=== PATIENT | male | born 1955 | race Caucasian/White ===

== ENCOUNTER 2018-10-03 20:56 | Emergency (ER) | payer MEDICARE, OTHER ==
--- NOTE | 2018-10-03 21:48 | EDM.PDOC ---
ED HPI GENERAL MEDICAL PROBLEM - General Chief Complaint: General Stated Complaint: finger pain Time Seen by Provider: 10/03/18 21:37 Source of Information: Reports: Patient History Limitations: Reports: No Limitations - History of Present Illness INITIAL COMMENTS - FREE TEXT/NARRATIVE: Patient comes in with complaint of recent onset swelling and pain near base of fingernail right middle finger. He tried to drain it on his own where an area appeared to be abscessed but unable. Wonders if it is related to dog bite for weeks ago where he had wounds to the middle portion of the same finger as well as base of finger. These areas have since healed well and do not have any increased redness/swelling or drainage. No fevers/chills. No other pain complaint with affected hand/fingers/arm. No other acute complaints. [place] [facility]. Smoker. - Related Data Allergies Allergy/AdvReac Type Severity Reaction Status Date / Time bee pollen Allergy Swelling Verified 10/03/18 21:04 bee venom protein (honey bee) Allergy Swelling Verified 10/03/18 21:04 dicyclomine [From Bentyl] Allergy Cannot Verified 10/03/18 21:04 Remember grain dust Allergy Rash Uncoded 10/03/18 21:04 plant fiber Allergy Other Uncoded 10/03/18 21:04 pollen Allergy Rash Uncoded 10/03/18 21:04 Home Meds: Home Meds ARIPiprazole [Abilify] 5 mg PO DAILY 10/03/18 [History] Amoxicillin/Clavulanate K [Augmentin 875-125 MG] 1 tab PO Q12HR #8 tablet [Rx] Aspirin [Halfprin] 81 mg PO DAILY 10/03/18 [History] Calcium Carbonate [Tums Extra Strength] 750 mg PO ASDIRECTED PRN 10/03/18 [ History] Cholecalciferol (Vitamin D3) [Vitamin D3] 8,000 unit PO DAILY 10/03/18 [History] D-Methorphan/PE/Acetaminophen [Cold Head Congestion Caplet] 1 each PO ASDIRECTED PRN 10/03/18 [History] Docusate Sodium [Colace] 100 mg PO DAILY PRN 10/03/18 [History] EPINEPHrine [Epipen] 0.3 mg IM ASDIRECTED PRN 10/03/18 [History] Empagliflozin [Jardiance] 10 mg PO DAILY 10/03/18 [History] Famotidine 20 mg PO DAILY 10/03/18 [History] Fenofibrate,Micronized [Fenofibrate] 134 mg PO DAILY 10/03/18 [History] Fluticasone Propionate [Flonase] 2 spray INH DAILY PRN 10/03/18 [History] Ibuprofen 400 mg PO TID PRN 10/03/18 [History] Insulin Detemir [Levemir] 30 unit SQ QAM 10/03/18 [History] Insulin Detemir [Levemir] 60 unit SQ QPM 10/03/18 [History] Lisinopril [Prinivil] 2.5 mg PO DAILY 10/03/18 [History] Mineral Oil/Petrolatum Hy-Phl [Hydrophor Oint] 1 applic TOP ASDIRECTED PRN 10/03 [History] Multivit-Minerals/Folic Acid [Cvs Daily Multiple Tablet] 0.4 mg PO DAILY [History] Omeprazole 20 mg PO DAILY 10/03/18 [History] Simvastatin 20 mg PO DAILY 10/03/18 [History] Tolnaftate [Antifungal] 113.3 gm TP ASDIRECTED PRN 10/03/18 [History] glipiZIDE [Glucotrol] 10 mg PO DAILY 10/03/18 [History] metFORMIN [Glucophage XR] 500 mg PO BIDMEALS 10/03/18 [History] Past Medical History HEENT History: Reports: Allergic Rhinitis, Hard of Hearing, Other (See Below) ( tinnitus) Cardiovascular History: Reports: High Cholesterol, Hypertension, PVD Respiratory History: Reports: Sleep Apnea Gastrointestinal History: Reports: GERD, Irritable Bowel Syndrome, Other (See Below) (dysphagia, colon polyps) Musculoskeletal History: Reports: Osteoarthritis, Other (See Below) (ventral hernia) Psychiatric History: Reports: Anxiety, Bipolar, Depression, PTSD, Other (See Below) (mood disorder, insomnia, somatiform disorder) Endocrine/Metabolic History: Reports: Diabetes, Type II (with neuropathy), Obesity/BMI 30+ Hematologic History: Reports: Other (See Below) (vitamin D deficiency) Dermatologic History: Reports: Psoriasis Social & Family History - Family History Family Medical History: Noncontributory - Tobacco Use Smoking Status *Q: Current Every Day Smoker Years of Tobacco use: 44 Packs/Tins Daily: 2 Smoking Cessation Information Provided To Patient: Patient Refused - Caffeine Use Caffeine Use: Reports: Coffee, Soda - Alcohol Use Days Per Week of Alcohol Use: 4 Number of Drinks Per Day: 1 Total Drinks Per Week: 4 - Recreational Drug Use Recreational Drug Use: No ED ROS GENERAL - Review of Systems Review Of Systems: ROS reveals no pertinent complaints other than HPI. ED EXAM, GENERAL - Physical Exam Exam: See Below Exam Limited By: No Limitations General Appearance: Alert, WD/WN, No Apparent Distress Eye Exam: Bilateral Eye: EOMI, PERRL Head: Atraumatic, Normocephalic Neck: Supple Respiratory/Chest: No Respiratory Distress Extremities: Other (Examination of right hand shows mild erythema around edge of fingernail middle finger right hand. Able to identify formation of abscess underneath skin but no drainage noted. Finger function is intact. Healed areas of skin noted middle and base of same finger from patient's reported dog bite. These areas appear to be healing well, no redness/pain/drainage. Hand and remaining fingers nontender and full ROM. ) Psychiatric: Normal Affect, Normal Mood, Other (very talkative) Skin Exam: Warm, Dry ED GENERAL MEDICAL PROCEDURES - Additional/Other Procedure(s) Other (Free Text) Procedure(s): area of redness/swelling distal right middle finger cleansed with alcohol. Abscess drained using number 11 blade. Sample sent for culture and smear. Course - Vital Signs Last Recorded V/S: Last Vital Signs Temp 36.8 C 10/03/18 21:17 Pulse 95 10/03/18 21:17 Resp 16 10/03/18 21:17 BP 119/74 10/03/18 21:17 Pulse Ox 98 10/03/18 21:17 - Orders/Labs/Meds Orders: Active Orders 24 hr Category Date Time Status CULTURE WOUND + SMEAR [RM] Stat Lab 10/03/18 21:37 Ordered Meds: Medications Discontinued Medications Generic Name Dose Route Start Last Admin Trade Name Deni PRN Reason Stop Dose Admin Tramadol HCl 50 mg 10/03/18 21:57 Ultram PO 10/03/18 21:58 ONETIME ONE - Re-Assessments/Exams Free Text/Narrative Re-Assessment/Exam: I&D performed. Culture and sensitivity/smear ordered from abscess material. Patient had brief vaso-vagal episode during procedure and was placed from sitting position to laying down on his back in ER bed. He quickly recovered. Stated that his finger was much more comfortable after it abscess drained. Single Tramadol ordered for pain. No pain medication sent home with patient as 1) he declined pain medication and 2) he was very specific that he was going to the bar to be with his sons and would be drinking alcohol. Wound care discussed at length. Precautions reviewed. To follow up if finger shows signs of worsening, or if no improvement noted by Saturday. 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 Pending culture results, may need to have antibiotic switched if this infection is also MRSA + To go bottle of 6 doses Augmentin given to patient to take home. Additional Rx for 8 tabs to complete one week course of treatment also given to patient. Departure - Departure Time of Disposition: 21:57 Disposition: Home, Self-Care 01 Condition: Good Clinical Impression: Encounter for drainage of abscess Paronychia of finger Qualifiers: Laterality: right Qualified Code(s): L03.011 - Cellulitis of right finger - Discharge Information *PRESCRIPTION DRUG MONITORING PROGRAM REVIEWED*: Not Applicable *COPY OF PRESCRIPTION DRUG MONITORING REPORT IN PATIENT CATHY: Not Applicable Prescriptions: Amoxicillin/Clavulanate K [Augmentin 875-125 MG] 1 tab PO Q12HR #8 tablet Instructions: Paronychia, [id number] Referrals: Rachel Graham PA [Primary Care Provider] - Forms: ED Department Discharge Additional Instructions: Soak affected finger in saline for 15 minutes twice a day for the next 5 days. Take you antibiotic every 12 hours for one week Get rechecked if finger is not improving within two days. Check on last tetanus shot year, get updated shot if greater than 10 yrs since last one. If culture is + for MRSA will need to switch antibiotics. - My Orders Last 24 Hours: My Active Orders 10/03/18 21:37 CULTURE WOUND + SMEAR [RM] Stat - Assessment/Plan Last 24 Hours: My Active Orders 10/03/18 21:37 CULTURE WOUND + SMEAR [RM] Stat
[2018-10-03] MEDS ORDERED: traMADol 50 MG Tab PO ONE (21:57)
== END 2018-10-03 22:40 | disposition home or self-care (01) ==
LOC: LL.ED 20:56
DX: L03.011 Cellulitis of right finger (principal); F17.210 Nicotine dependence, cigarettes, uncomplicated; Z79.899 Other long term (current) drug therapy; E78.00 Pure hypercholesterolemia, unspecified; I10 Essential (primary) hypertension; F41.9 Anxiety disorder, unspecified; E11.40 Type 2 diabetes mellitus with diabetic neuropathy, unspecified; Z79.4 Long term (current) use of insulin
CPT/HCPCS: 10060; 87070; 87205; 99283-25; A9270-GY

== ENCOUNTER 2019-08-03 16:07 | Emergency (ER) | payer MEDICARE, OTHER ==
[2019-08-03 16:44] LABS: CHLORIDE,CL 101 mmol/L (98-107); SODIUM,NA 136 mmol/L (136-145)
--- NOTE | 2019-08-03 17:14 | EDM.PDOC ---
ED HPI GENERAL MEDICAL PROBLEM - General Chief Complaint: Fever Stated Complaint: fever, difficulty urinating, burning urine Time Seen by Provider: 08/03/19 16:35 Source of Information: Reports: Patient History Limitations: Reports: No Limitations - History of Present Illness INITIAL COMMENTS - FREE TEXT/NARRATIVE: Patient comes to ER with complaint of not feeling well for last 5 days. Reports feeling achy/chilled around 4-5 days ago. That improved. He was noted to have temp of 104 today at [place] home. Around same time he reports having more hesitancy with urination. Today has some burning with urination/feels pressure. No hematuria. Was trying to drink cranberry juice the last few days as he worried he might be getting some sort of UTI. Does not report having any significant history of UTIs or prostatitis. Denies HEENT changes/[place]/runny nose/sore throat No RESP changes such as cough/wheeze/SOB No CV changes/chest pain/palpitation No GI complaints such as appetite changes/nausea/emesis/bowel changes/abdominal pain/flank pain No acute neuro changes/focal changes groin area Pain Score (Numeric/FACES): 4 - Related Data Allergies Allergy/AdvReac Type Severity Reaction Status Date / Time bee pollen Allergy Swelling Verified 08/03/19 16:30 bee venom protein (honey bee) Allergy Swelling Verified 08/03/19 16:30 grain dust Allergy Rash Uncoded 08/03/19 16:30 plant fiber Allergy Other Uncoded 08/03/19 16:30 pollen Allergy Rash Uncoded 08/03/19 16:30 Home Meds: Home Meds ARIPiprazole [Abilify] 5 mg PO DAILY 10/03/18 [History] Amoxicillin/Clavulanate K [Augmentin 875-125 MG] 1 tab PO Q12HR #8 tablet [Rx] Aspirin [Halfprin] 81 mg PO DAILY 10/03/18 [History] Calcium Carbonate [Tums Extra Strength] 750 mg PO ASDIRECTED PRN 10/03/18 [ History] Cholecalciferol (Vitamin D3) [Vitamin D3] 8,000 unit PO DAILY 10/03/18 [History] D-Methorphan/PE/Acetaminophen [Cold Head Congestion Caplet] 1 each PO ASDIRECTED PRN 10/03/18 [History] Docusate Sodium [Colace] 100 mg PO DAILY PRN 10/03/18 [History] EPINEPHrine [Epipen] 0.3 mg IM ASDIRECTED PRN 10/03/18 [History] Empagliflozin [Jardiance] 10 mg PO DAILY 10/03/18 [History] Famotidine 20 mg PO DAILY 10/03/18 [History] Fenofibrate,Micronized [Fenofibrate] 134 mg PO DAILY 10/03/18 [History] Fluticasone Propionate [Flonase] 2 spray INH DAILY PRN 10/03/18 [History] Ibuprofen 400 mg PO TID PRN 10/03/18 [History] Insulin Detemir [Levemir] 30 unit SQ QAM 10/03/18 [History] Insulin Detemir [Levemir] 60 unit SQ QPM 10/03/18 [History] Mineral Oil/Petrolatum Hy-Phl [Hydrophor Oint] 1 applic TOP ASDIRECTED PRN 10/03 [History] Multivit-Minerals/Folic Acid [Cvs Daily Multiple Tablet] 0.4 mg PO DAILY [History] Omeprazole 20 mg PO DAILY 10/03/18 [History] Simvastatin 20 mg PO DAILY 10/03/18 [History] Tolnaftate [Antifungal] 113.3 gm TP ASDIRECTED PRN 10/03/18 [History] glipiZIDE [Glucotrol] 10 mg PO DAILY 10/03/18 [History] lisinopriL [Prinivil] 2.5 mg PO DAILY 10/03/18 [History] metFORMIN [Glucophage XR] 500 mg PO BIDMEALS 10/03/18 [History] Sulfamethoxazole/Trimethoprim [Septra DS] 1 each PO Q12H #36 tab 08/03/19 [Rx] Past Medical History HEENT History: Reports: Allergic Rhinitis, Hard of Hearing, Other (See Below) Cardiovascular History: Reports: High Cholesterol, Hypertension, PVD Respiratory History: Reports: Sleep Apnea Gastrointestinal History: Reports: GERD, Irritable Bowel Syndrome, Other (See Below) Musculoskeletal History: Reports: Osteoarthritis, Other (See Below) Psychiatric History: Reports: Anxiety, Bipolar, Depression, PTSD, Other (See Below) Endocrine/Metabolic History: Reports: Diabetes, Type II, Obesity/BMI 30+ Hematologic History: Reports: Other (See Below) Dermatologic History: Reports: Psoriasis Social & Family History - Family History Family Medical History: Noncontributory - Caffeine Use Caffeine Use: Reports: Coffee, Soda ED ROS GENERAL - Review of Systems Review Of Systems: Comprehensive ROS is negative, except as noted in HPI. ED EXAM, GENERAL - Physical Exam Exam: See Below Exam Limited By: No Limitations General Appearance: Alert, WD/WN, No Apparent Distress Eye Exam: Bilateral Eye: EOMI, PERRL Ears: Normal External Exam, Hearing Grossly Normal Nose: No: Nasal Deformity, Nasal Swelling, Nasal Drainage Throat/Mouth: Normal Lips, Normal Voice, No Airway Compromise Head: Atraumatic, Normocephalic Neck: Supple, Full Range of Motion Respiratory/Chest: No Respiratory Distress, Lungs Clear, Normal Breath Sounds, No Accessory Muscle Use, Chest Non-Tender Cardiovascular: Normal Peripheral Pulses, No Murmur, No Rub, Tachycardia ( elevated temp) GI/Abdominal: Normal Bowel Sounds, Soft, Non-Tender. No: Guarding, Rigid, Rebound, Tender (Male) Exam: Deferred Rectal (Males) Exam: Deferred Back Exam: No: CVA Tenderness (L), CVA Tenderness (R), Muscle Spasm, Paraspinal Tenderness, Vertebral Tenderness Extremities: Normal Range of Motion, Normal Capillary Refill Neurological: Alert, Oriented, Normal Gait Psychiatric: Normal Affect, Normal Mood Skin Exam: Warm, Dry, Intact, Normal Color Course - Vital Signs Last Recorded V/S: Last Vital Signs Temp 38.5 C H 08/03/19 16:23 Pulse 123 H 08/03/19 16:23 Resp 22 H 08/03/19 16:23 BP 140/58 L 08/03/19 16:23 Pulse Ox 93 L 08/03/19 16:23 - Orders/Labs/Meds Orders: Active Orders 24 hr Category Date Time Status Communication Order [RC] ROUTINE Care 08/03/19 16:42 Ordered Chest 2V [CR] Stat Exams 08/03/19 16:36 Ordered CULTURE URINE [RM] Stat Lab 08/03/19 16:00 Received Labs: Laboratory Tests 08/03/19 08/03/19 08/03/19 Range/Units 16:00 16:24 16:24 WBC 12.3 H (4.0-10.2) K/uL RBC 4.11 L (4.33-5.41) M/uL Hgb 12.8 L (13.1-16.8) g/dL Hct 35.9 L (39.0-49.0) % MCV 87.3 (84.0-98.0) fL MCH 31.1 (28.2-33.3) pg MCHC 35.7 (31.7-36.0) g/dL RDW 13.2 (11.2-14.1) % Plt Count 186 (150-350) K/uL Neut % (Auto) 83.4 H (45.0-80.0) % Lymph % (Auto) 7.4 L (10.0-50.0) % [place] % (Auto) 8.3 (2.0-14.0) % Eos % (Auto) 0.7 (0.0-5.0) % Baso % (Auto) 0.2 (0.0-2.0) % Neut # (Auto) 10.23 H (1.40-7.00) K/uL Lymph # (Auto) 0.91 (0.50-3.50) K/uL [place] # (Auto) 1.02 H (0.00-1.00) K/uL Eos # (Auto) 0.09 (0.00-0.50) K/uL Baso # (Auto) 0.03 (0.00-0.20) K/uL Sodium 136 (136-145) mmol/L Potassium 4.6 (3.5-5.1) mmol/L Chloride 101 (98-107) mmol/L Carbon Dioxide 23.9 (21.0-32.0) mmol/L BUN 24 H (7-18) mg/dL Creatinine 1.19 H (0.51-1.17) mg/dL Est Cr Clr Drug Dosing 66.64 mL/min Estimated GFR (MDRD) > 60 mL/min Glucose 352 H (74-106) mg/dL Lactic Acid (0.4-2.0) mmol/L Calcium 9.1 (8.5-10.1) mg/dL Specimen Type . Urine Color Yellow Urine Appearance Slightly cloudy Urine pH 6.0 (5.0-9.0) Ur Specific [place] 1.010 (1.005-1.030) Urine Protein 30 H (NEGATIVE) mg/dL Urine Glucose (UA) 500 H (NEGATIVE) mg/dL Urine Ketones Negative (NEGATIVE) mg/dL Urine Occult Blood Small H (NEGATIVE) Urine Nitrite Positive H (NEGATIVE) Urine Bilirubin Negative (NEGATIVE) Urine Urobilinogen 0.2 (0.2-1.0) E.U./dL Ur Leukocyte Esterase Small H (NEGATIVE) Urine RBC 0-5 /HPF Urine WBC 5-10 H /HPF Ur Epithelial Cells Few /LPF Urine Bacteria Moderate H (NONE TO FEW) /HPF Urinalysis Comment 08/03/19 Range/Units 16:24 WBC (4.0-10.2) K/uL RBC (4.33-5.41) M/uL Hgb (13.1-16.8) g/dL Hct (39.0-49.0) % MCV (84.0-98.0) fL MCH (28.2-33.3) pg MCHC (31.7-36.0) g/dL RDW (11.2-14.1) % Plt Count (150-350) K/uL Neut % (Auto) (45.0-80.0) % Lymph % (Auto) (10.0-50.0) % [place] % (Auto) (2.0-14.0) % Eos % (Auto) (0.0-5.0) % Baso % (Auto) (0.0-2.0) % Neut # (Auto) (1.40-7.00) K/uL Lymph # (Auto) (0.50-3.50) K/uL [place] # (Auto) (0.00-1.00) K/uL Eos # (Auto) (0.00-0.50) K/uL Baso # (Auto) (0.00-0.20) K/uL Sodium (136-145) mmol/L Potassium (3.5-5.1) mmol/L Chloride (98-107) mmol/L Carbon Dioxide (21.0-32.0) mmol/L BUN (7-18) mg/dL Creatinine (0.51-1.17) mg/dL Est Cr Clr Drug Dosing mL/min Estimated GFR (MDRD) mL/min Glucose (74-106) mg/dL Lactic Acid 1.0 (0.4-2.0) mmol/L Calcium (8.5-10.1) mg/dL Specimen Type Urine Color Urine Appearance Urine pH (5.0-9.0) Ur Specific [place] (1.005-1.030) Urine Protein (NEGATIVE) mg/dL Urine Glucose (UA) (NEGATIVE) mg/dL Urine Ketones (NEGATIVE) mg/dL Urine Occult Blood (NEGATIVE) Urine Nitrite (NEGATIVE) Urine Bilirubin (NEGATIVE) Urine Urobilinogen (0.2-1.0) E.U./dL Ur Leukocyte Esterase (NEGATIVE) Urine RBC /HPF Urine WBC /HPF Ur Epithelial Cells /LPF Urine Bacteria (NONE TO FEW) /HPF Urinalysis Comment - Re-Assessments/Exams Free Text/Narrative Re-Assessment/Exam: Elevated temp and accompanying elevated heart rate noted. Good capillary refill/ well hydrated. UA showed 5-10 WBC with some LE/Nitrite noted. UC requested. Mild increase in WBC. Normal lactic acid. Chest xray appeared unremarkable. Plan at this time is to place patient on Septra. This will provide coverage for UTI/prostatitis. May need to change coverage once UC results available. Recheck of UA recommended in 1-2 weeks. To get rechecked if no improvement of symptoms noted within 2-3 days or if symptoms suddenly worsen. Departure - Departure Time of Disposition: 17:09 Disposition: Home, Self-Care 01 Condition: Good Clinical Impression: UTI (urinary tract infection) Qualifiers: Urinary tract infection type: site unspecified Hematuria presence: without hematuria Qualified Code(s): N39.0 - Urinary tract infection, site not specified - Discharge Information *PRESCRIPTION DRUG MONITORING PROGRAM REVIEWED*: Not Applicable *COPY OF PRESCRIPTION DRUG MONITORING REPORT IN PATIENT CATHY: Not Applicable Prescriptions: Sulfamethoxazole/Trimethoprim [Septra DS] 1 each PO Q12H #36 tab Instructions: Urinary Tract Infection, Adult, [id number] Referrals: PCP,Unknown [Primary Care Provider] - Forms: ED Department Discharge Additional Instructions: Take your antibiotic once every 12 hours for three weeks. Arrange to have your urine rechecked in 1-2 weeks to make certain that things appear to be improving. Get to the clinic for recheck/or return to ER if you have sudden worsening symptoms. Sepsis Event Note - Evaluation Sepsis Screening Result: Possible Sepsis Risk - Focused Exam Vital Signs: Vital Signs Temp Pulse Resp BP Pulse Ox 08/03/19 16:23 38.5 C H 123 H 22 H 140/58 L 93 L Date Exam was Performed: 08/03/19 Time Exam was Performed: 17:16 - My Orders Last 24 Hours: My Active Orders 08/03/19 16:00 CULTURE URINE [RM] Stat 08/03/19 16:36 Chest 2V [CR] Stat 08/03/19 16:42 Communication Order [RC] ROUTINE - Assessment/Plan Last 24 Hours: My Active Orders 08/03/19 16:00 CULTURE URINE [RM] Stat 08/03/19 16:36 Chest 2V [CR] Stat 08/03/19 16:42 Communication Order [RC] ROUTINE
== END 2019-08-03 17:30 | disposition home or self-care (01) ==
LOC: LL.ED 16:07
DX: N39.0 Urinary tract infection, site not specified (principal); E11.9 Type 2 diabetes mellitus without complications; E66.9 Obesity, unspecified; I10 Essential (primary) hypertension; K21.9 Gastro-esophageal reflux disease without esophagitis; Z91.030 Bee allergy status; Z79.4 Long term (current) use of insulin; Z79.82 Long term (current) use of aspirin; Z79.899 Other long term (current) drug therapy
CPT/HCPCS: 36415; 51701; 51798; 71046; 80048; 81001; 83605; 85025; 87086; 87088; 87186; 99283; 99283-25

== ENCOUNTER 2021-02-20 01:26 | Emergency (ER) | payer MEDICARE, OTHER ==
[2021-02-20 02:09] LABS: ANION GAP 11.7 meq/L (7-15)
[2021-02-20] MEDS ORDERED: Sulfamethoxazole/Trimethoprim 800-160 MG Tab PO ONE (02:30)
[2021-02-20] MEDS ORDERED: Enoxaparin 60 MG/0.6 ML Syringe SUBCUT ONE (02:32)
--- NOTE | 2021-02-20 02:43 | EDM.PDOC ---
ED HPI GENERAL MEDICAL PROBLEM - General Chief Complaint: General Stated Complaint: pain & swelling R leg Time Seen by Provider: 02/20/21 02:13 Source of Information: Reports: Patient, Assisted Records - History of Present Illness INITIAL COMMENTS - FREE TEXT/NARRATIVE: Ino is a 65 y/o male who lives at the [facility] and he is here in the the ER tonight for increase right lower leg swelling. He showed the nurse his leg tonight and it is quite edematous and oozing serous colored fluid in an area on the inner calf region. No fever, but he does report that yesterday felt chilled and overall not good. He is a diabetic and and has a history of frequent cellulitis and venous dermatitis. He has been getting Unna Boot applied and he finished a course of Levaquin recently. Treatments VASCULAR MANAGER: Reports: Other (see below) Other Treatments VASCULAR MANAGER: gabapentin at 0000. - Related Data Allergies Allergy/AdvReac Type Severity Reaction Status Date / Time bee venom protein (honey bee) Allergy Swelling Verified 02/20/21 02:00 pollen extracts Allergy Sneezing Verified 02/20/21 02:00 fiber Allergy Itching Uncoded 02/20/21 02:00 grain dust Allergy Sneezing Uncoded 02/20/21 02:00 Home Meds: Home Meds ARIPiprazole [Abilify] 5 mg PO DAILY 02/20/21 [History] Acetaminophen [Tylenol] 650 mg PO QID 02/20/21 [History] Aspirin [Aspirin EC] 81 mg PO DAILY 02/20/21 [History] Calcium Carbonate [Tums] 750 mg PO ASDIRECTED PRN 02/20/21 [History] Cholecalciferol (Vitamin D3) [Vitamin D3] 2,000 unit PO DAILY 02/20/21 [History] EPINEPHrine [Epipen] 0.3 mg IM ASDIRECTED PRN 02/20/21 [History] Empagliflozin [Jardiance] 10 mg PO DAILY 02/20/21 [History] Famotidine 20 mg PO DAILY 02/20/21 [History] Fenofibrate,Micronized [Fenofibrate] 134 mg PO DAILY 02/20/21 [History] Fluticasone Propionate [Flovent] 1 puff IH BID 02/20/21 [History] Gabapentin [Neurontin] 600 mg PO Q4HR 02/20/21 [History] Ibuprofen 400 mg PO TID PRN 02/20/21 [History] Insulin Detemir [Levemir] 30 unit SQ DAILY@08 02/20/21 [History] Insulin Detemir [Levemir] 60 unit SQ BEDTIME 02/20/21 [History] Methyl Salicylate/Menthol [Thera-Gesic Analgesic] 85 gm TP QID PRN 02/20/21 [History] Multivit with Iron,Minerals [Complete Senior] 1 each PO DAILY 02/20/21 [History] Omeprazole 20 mg PO DAILY 02/20/21 [History] Petrolatum,White [Hydrophor] 228 gm TP ASDIRECTED PRN 02/20/21 [History] Simvastatin [Zocor] 20 mg PO BEDTIME 02/20/21 [History] Sulfamethoxazole/Trimethoprim [Bactrim Ds Tablet] 1 each PO BID #20 tablet 02/20/21 [Rx] Tolnaftate [Antifungal] 113.3 gm TP BID PRN 02/20/21 [History] glipiZIDE [Glucotrol XL] 10 mg PO DAILY 02/20/21 [History] lisinopriL [Lisinopril] 10 mg PO DAILY@08 02/20/21 [History] lisinopriL [Lisinopril] 20 mg PO DAILY@20 02/20/21 [History] metFORMIN HCl [Metformin HCl ER] 1,000 mg PO BID 02/20/21 [History] polyethylene glycoL 3350 [Miralax] 17 gm PO DAILY PRN 02/20/21 [History] Social & Family History - Tobacco Use Tobacco Use Status *Q: Current Every Day Tobacco User Years of Tobacco use: 36 Packs/Tins Daily: 1.5 Second Hand Smoke Exposure: No - Caffeine Use Caffeine Use: Reports: Coffee, Soda - Recreational Drug Use Recreational Drug Use: No ED ROS GENERAL - Review of Systems Review Of Systems: See Below Constitutional: Reports: Chills HEENT: Reports: No Symptoms Respiratory: Reports: No Symptoms Cardiovascular: Reports: No Symptoms Endocrine: Reports: No Symptoms GI/Abdominal: Reports: No Symptoms : Reports: No Symptoms Musculoskeletal: Reports: No Symptoms Skin: Reports: Erythema (right lower leg, edema) Neurological: Reports: No Symptoms Psychiatric: Reports: No Symptoms Hematologic/Lymphatic: Reports: No Symptoms Immunologic: Reports: No Symptoms ED EXAM, GENERAL - Physical Exam Exam: See Below General Appearance: Alert, WD/WN, No Apparent Distress, Other (Elderly male, pleasant.) Ears: Hearing Grossly Normal Nose: Normal Inspection Throat/Mouth: Normal Voice Head: Atraumatic, Normocephalic Neck: Supple Respiratory/Chest: No Respiratory Distress, Lungs Clear Cardiovascular: Regular Rate, Rhythm GI/Abdominal: Normal Bowel Sounds, Soft (Male) Exam: Deferred Rectal (Males) Exam: Deferred Extremities: Other (Both legs have venous dermatitis appearance, right leg is more swollen, with 2-3+ pitting edema noted, small area on serous drainage ozzing from tissue on the right inner calf region, no other open areas or sores noted) Neurological: Alert, Oriented, CN II-XII Intact Psychiatric: Normal Affect Skin Exam: Warm, Dry, Intact, Normal Color Course - Vital Signs Text/Narrative:: The patient was seen by the DIESEL ENGINE INSPECTOR. Labs ordered. Labs reviewed. Note normal WBC, neutrophils mild elevated at 81.5%; CMP BUN=26, Grain Broker=1.73 (Previously BUN=27, Grain Broker=1.18 on 05-23-2020), PT/INR stable. Suspect recurrent Cellulitis, but will order Venous Doppler Study for later today to exclude DVT. He was given Bactrim DS 1 tab po tp cover for infection and Lovenox 60mg SQ for DVT prophylaxis. Instructions and plan sent in written form for [facility] staff. He left the ER in stable condition. Last Recorded V/S: Last Vital Signs Temp 36.9 C 02/20/21 01:26 Pulse 110 H 02/20/21 01:26 Resp 18 02/20/21 01:26 BP 151/72 H 02/20/21 01:26 Pulse Ox 98 02/20/21 01:26 - Orders/Labs/Meds Orders: Active Orders 24 hr Category Date Time Status CULTURE WOUND [RM] Stat Lab 02/20/21 02:14 Ordered Labs: Laboratory Tests 02/20/21 02/20/21 02/20/21 Range/Units 01:50 01:50 01:50 WBC 9.5 (4.0-10.2) K/uL RBC 4.51 (4.33-5.41) M/uL Hgb 13.3 (13.1-16.8) g/dL Hct 37.9 L (39.0-49.0) % MCV 84.0 (84.0-98.0) fL MCH 29.5 (28.2-33.3) pg MCHC 35.1 (31.7-36.0) g/dL RDW 14.7 H (11.2-14.1) % Plt Count 163 (150-350) K/uL Neut % (Auto) 81.5 H (45.0-80.0) % Lymph % (Auto) 9.8 L (10.0-50.0) % [place] % (Auto) 7.9 (2.0-14.0) % Eos % (Auto) 0.6 (0.0-5.0) % Baso % (Auto) 0.2 (0.0-2.0) % Neut # (Auto) 7.69 H (1.40-7.00) K/uL Lymph # (Auto) 0.93 (0.50-3.50) K/uL [place] # (Auto) 0.75 (0.00-1.00) K/uL Eos # (Auto) 0.06 (0.00-0.50) K/uL Baso # (Auto) 0.02 (0.00-0.20) K/uL PT 11.6 (9.5-12.0) SEC INR 1.2 Sodium 134 L (136-145) mmol/L Potassium 3.8 (3.5-5.1) mmol/L Chloride 101 (98-107) mmol/L Carbon Dioxide 25.1 (21.0-32.0) mmol/L Anion Gap 11.7 (7-15) meq/L BUN 26 H (7-18) mg/dL Creatinine 1.73 H (0.51-1.17) mg/dL Est Cr Clr Drug Dosing 45.24 mL/min Estimated GFR (MDRD) 40 mL/min Glucose 182 H (70-99) mg/dL Lactic Acid (0.4-2.0) mmol/L Calcium 8.6 (8.5-10.1) mg/dL 02/20/21 Range/Units 01:50 WBC (4.0-10.2) K/uL RBC (4.33-5.41) M/uL Hgb (13.1-16.8) g/dL Hct (39.0-49.0) % MCV (84.0-98.0) fL MCH (28.2-33.3) pg MCHC (31.7-36.0) g/dL RDW (11.2-14.1) % Plt Count (150-350) K/uL Neut % (Auto) (45.0-80.0) % Lymph % (Auto) (10.0-50.0) % [place] % (Auto) (2.0-14.0) % Eos % (Auto) (0.0-5.0) % Baso % (Auto) (0.0-2.0) % Neut # (Auto) (1.40-7.00) K/uL Lymph # (Auto) (0.50-3.50) K/uL [place] # (Auto) (0.00-1.00) K/uL Eos # (Auto) (0.00-0.50) K/uL Baso # (Auto) (0.00-0.20) K/uL PT (9.5-12.0) SEC INR Sodium (136-145) mmol/L Potassium (3.5-5.1) mmol/L Chloride (98-107) mmol/L Carbon Dioxide (21.0-32.0) mmol/L Anion Gap (7-15) meq/L BUN (7-18) mg/dL Creatinine (0.51-1.17) mg/dL Est Cr Clr Drug Dosing mL/min Estimated GFR (MDRD) mL/min Glucose (70-99) mg/dL Lactic Acid 0.7 (0.4-2.0) mmol/L Calcium (8.5-10.1) mg/dL Meds: Medications Discontinued Medications Generic Name Dose Route Start Last Admin Trade Name Freq PRN Reason Stop Dose Admin Enoxaparin Sodium 60 mg 02/20/21 02:32 Enoxaparin 60 Mg/0.6 Ml Syringe SUBCUT 02/20/21 02:33 ONETIME ONE Trimethoprim/Sulfamethoxazole 1 tab 02/20/21 02:30 Sulfamethoxazole/Trimethoprim 800-160 Mg Tab PO 02/20/21 02:31 ONETIME ONE Departure - Departure Time of Disposition: 02:38 Disposition: DC/Tfer to SNF 03 Condition: Good Clinical Impression: Edema of right lower extremity, Stasis dermatitis of both legs Type 2 diabetes mellitus Qualifiers: Diabetes mellitus long term care social worker insulin use: unspecified senior living insulin use status Diabetes mellitus complication status: with other specified complication Qualified Code(s): E11.69 - Type 2 diabetes mellitus with other specified complication - Discharge Information *PRESCRIPTION DRUG MONITORING PROGRAM REVIEWED*: Not Applicable *COPY OF PRESCRIPTION DRUG MONITORING REPORT IN PATIENT CATHY: Not Applicable Prescriptions: Sulfamethoxazole/Trimethoprim [Bactrim Ds Tablet] 1 each PO BID #20 tablet Instructions: Stasis Dermatitis, Type 2 Diabetes Mellitus, Self Care, Adult, [id number] Referrals: Rachel Graham PA [Primary Care Provider] - Additional Instructions: -Bactrim DS 1 po BID #20(Rx) -Lovenox 60mg SQ x1 given in the ER to cover for DVT -Venous Doppler Study later today. You will be notified of the time. -Continue Unna Boot after US today, unless directed otherwise -Call PCP for further concerns -Return to the ER as needed Sepsis Event Note (ED) - Evaluation Sepsis Screening Result: Possible Sepsis Risk - Focused Exam Vital Signs: Vital Signs Temp Pulse Resp BP Pulse Ox 02/20/21 01:26 36.9 C 110 H 18 151/72 H 98 - My Orders Last 24 Hours: My Active Orders 02/20/21 02:14 CULTURE WOUND [RM] Stat - Assessment/Plan Last 24 Hours: My Active Orders 02/20/21 02:14 CULTURE WOUND [RM] Stat
== END 2021-02-20 03:00 ==
LOC: MERGE 01:26 → LL.ED 01:26
DX: R60.0 Localized edema (principal); I87.2 Venous insufficiency (chronic) (peripheral); E11.69 Type 2 diabetes mellitus with other specified complication; Z91.030 Bee allergy status; Z91.09 Other allergy status, other than to drugs and biological substances; Z91.048 Other nonmedicinal substance allergy status; Z72.0 Tobacco use; Z79.4 Long term (current) use of insulin; Z79.899 Other long term (current) drug therapy
CPT/HCPCS: 36415; 80048; 83605; 85025; 85610; 87070; 87186; 87205; 96372; 99283; 99284; A9270; J1650